=== PATIENT | male | born 1935 | race Caucasian/White ===

== ENCOUNTER 2018-08-01 10:21 | Inpatient (IN) | payer MEDICARE | END 2018-08-02 18:33 | disposition home or self-care (01) | LOC: EDH 10:21 → EDHIP 11:00 → 2AH 16:10 | DX: I44.2 Atrioventricular block, complete (principal); I50.42 Chronic combined systolic (congestive) and diastolic (congestive) heart failure; J44.9 Chronic obstructive pulmonary disease, unspecified; I71.4 Abdominal aortic aneurysm, without rupture ==

== ENCOUNTER → 2018-09-10 | Outpatient (CLI) | payer MEDICARE ==
[~2018-09-10] MED LIST: ACET-2521 PO; AEC81 PO; CHOL200074 PO; FLU15OS OS; GLIM4TAB3 PO; POLY119P17 PO; PRAM0.5T12 PO; ROSU20TA23 PO; TAMS0.4C32 PO
== END | disposition home or self-care (01) ==
LOC: SHCH 11:08
PROVIDERS: ATTEND Internal Medicine Cardiovascular Disease
DX: I11.9 Hypertensive heart disease without heart failure (principal); I08.0 Rheumatic disorders of both mitral and aortic valves
CPT/HCPCS: 93306

== ENCOUNTER 2018-10-01 05:39 | Day surgery (SDC) | payer MEDICARE ==
[2018-09-27 10:27] LABS: APPEARANCE,URINE Clear (CLEAR); BASOPHILS % (AUTO) 0.5 % (0.0-5.0); BILIRUBIN,URINE Negative (NEGATIVE); COLOR,URINE Yellow (YELLOW); EOSINOPHILS % (AUTO) 1.7 % (0.0-8.0); GLUCOSE, URINE (UA) Negative (NEGATIVE); HEMATOCRIT 37.6 % (42-54); KETONES,URINE Negative (NEGATIVE); LEUKOCYTE ESTERASE ,URINE Negative (NEGATIVE); MEAN CORPUSCULAR HEMOGLOBIN 35.4 pg (27.0-33.0); MEAN CORPUSCULAR HGB CONC 33.9 g/dL (32.0-36.0); MEAN CORPUSCULAR VOLUME 104.5 fL (79-99); MONOCYTES % (AUTO) 7.5 % (3.0-13.0); NEUTROPHILS % (AUTO) 51.3 % (40.0-77.0); NITRATE,URINE Negative (NEGATIVE); NUCLEATED RED BLOOD CELLS 0.1 % (0.0-0.19); OCCULT BLOOD,URINE Negative (NEGATIVE); PLATELET COUNT (AUTO) 142 K/uL (130-400); PROTEIN,URINE Negative (NEGATIVE); RED CELL DISTRIBUTION WIDTH 13.7 % (11.0-15.5); WHITE BLOOD COUNT (AUTO) 5.8 K/uL (4.8-10.8)
[2018-09-27 10:29] VITALS: BP 140/68
[2018-09-27 10:35] LABS: CREATININE 1.1 mg/dL (0.5-1.5); POTASSIUM 4.5 mmol/L (3.5-5.1)
[2018-09-27 11:42] LABS: INR 0.98 (0.85-1.15); PARTIAL THROMBOPLASTIN TIME 28.7 SEC (26.3-35.5); PROTHROMBIN TIME 10.3 SEC (9.6-11.6)
[~2018-10-01] VITALS: Ht 175.3 cm; Wt 112.9 kg
[2018-10-01] VITALS (15 sets, daily range): BP systolic 113–137; BP diastolic 50–71
[~2018-10-01 05:39] MED LIST changes: -ACET-2521 PO; +AREDS PO; +MUPI22OI2 TP; -POLY119P17 PO; +SENN-111 PO; +SODIUM CHLORIDE 0.9% 500ML 500 ML IV SCH
[2018-10-01] MEDS ORDERED: SODIUM CHLORIDE 0.9% 1000ML 1,000 ML IV ONE (06:16)
[2018-10-01] MEDS ORDERED: IOHEXOL 350 MG/ML 100ML INFUS..BTL IV ONE (08:12)
[2018-10-01] MEDS ORDERED: NITROGLYCERIN 5 MG/ML 10 ML VIAL IV ONE (08:12)
[2018-10-01] MEDS ORDERED: IOHEXOL-350 50ML VIAL IV ONE (08:12)
[2018-10-01] MEDS ORDERED: LIDOCAINE HCL 2% 20ML ONE (08:12)
--- NOTE | 2018-10-01 08:25 | NUR ---
Pt to laboratory courier, report given and care rendered over to TY Hinojosa. TY Hinojosa informed of pt's concern with his restless leg syndrome in his right leg.
[2018-10-01] MEDS ORDERED: MIDAZOLAM HCL 1 MG/ML 2ML VIAL ONE (09:06)
[2018-10-01] MEDS ORDERED: FENTANYL CITRATE PF 50 MCG/1 ML 2ML VIAL ONE (09:07)
[2018-10-01] MEDS ORDERED: HEPARIN SODIUM 1000UNIT/ML 10ML VIAL ONE (09:22)
[2018-10-01] MEDS ORDERED: SODIUM CHLORIDE 0.9% 1000ML 1,000 ML IV SCH (10:22)
[2018-10-01] MEDS ORDERED: FUROSEMIDE 10 MG/ML 2ML VIAL ONE (10:35)
--- NOTE | 2018-10-01 10:55 | NUR ---
Pt back from [employer] laboratory technician, NS set to run at 100 cc/hr. Pt voided soon after. Pt instructed to keep flat and to avoid moving neck and left leg. Pt denies any pain or nausea.
--- NOTE | 2018-10-01 11:15 | NUR ---
Called manager cardiac cath to see if it was okay to advance diet when tolerated, spoke to TY Kowalski. Permission given by Dr. Palomo to advance diet.
--- NOTE | 2018-10-01 12:00 | NUR ---
SUSANA Combs in the room at bedside. SUSANA Combs notified that pt was complaining that left cath site felt tight and that it felt a bit hard upon pt's arrival. Vlad Pompa confirmed that the site was fine.
--- NOTE | 2018-10-01 14:00 | NUR ---
Pt's left cath site remains a bit firm still. 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 Shay CRAWFORD, states the site actually felt softer and less swollen than it did initially following the procedure. Will continue to monitor.
--- NOTE | 2018-10-01 16:00 | NUR ---
Pt's bedrest was up at 1455. Pt allowed to get up to restroom to void. Pt assisted to sit up in chair at bedside with legs elevated. Left femoral catheter site is soft, dressing dry and intact, pt denies any tenderness or continued feelings of "tightness."
--- NOTE | 2018-10-01 17:15 | NUR ---
Pt discharged home, tolerating fluids/solid food well, voiding well, denies any severe pain, nausea or dizziness. Dressing x 2 to left groin feels soft and shows no evidence of active bleeding. Pt's swelling to bilateral legs has reduced significantly. Spouse and pt reminded of routine and emergency care of cath site. Pt and spouse verbalize understanding. Pt and spouse deny any further questions.
== END 2018-10-01 17:15 | disposition home or self-care (01) ==
LOC: DAH 05:39
PROVIDERS: ATTEND Internal Medicine Cardiovascular Disease
DX: I35.0 Nonrheumatic aortic (valve) stenosis (principal); I44.7 Left bundle-branch block, unspecified; I35.1 Nonrheumatic aortic (valve) insufficiency; I11.0 Hypertensive heart disease with heart failure; I50.9 Heart failure, unspecified; I25.10 Atherosclerotic heart disease of native coronary artery without angina pectoris; Z95.0 Presence of cardiac pacemaker; I10 Essential (primary) hypertension; E11.9 Type 2 diabetes mellitus without complications; E78.00 Pure hypercholesterolemia, unspecified; N40.0 Benign prostatic hyperplasia without lower urinary tract symptoms; Z79.82 Long term (current) use of aspirin; Z79.899 Other long term (current) drug therapy
CPT/HCPCS: 36415; 71045; 80048; 81003; 82948 ×2; 85025; 85610; 85730; 93005; 93460; A4606; C1760; C1769 ×3; C1893; C1894 ×3; J1644 ×2; J1940; J2250; J3010; J3490 ×2; J7030; Q9965 ×2; Q9967 ×2; 99156; 99157

== ENCOUNTER → 2018-12-04 | Outpatient (CLI) | payer MEDICARE ==
[~2018-12-04] MED LIST changes: -SODIUM CHLORIDE 0.9% 500ML 500 ML IV SCH
== END | disposition home or self-care (01) ==
LOC: RAH 14:56
PROVIDERS: ATTEND Internal Medicine Cardiovascular Disease
DX: I87.2 Venous insufficiency (chronic) (peripheral) (principal); R60.9 Edema, unspecified
CPT/HCPCS: 93970